=== PATIENT | male | born 1950 | race Hispanic/Latino ===

== ENCOUNTER 2017-01-21 08:15 | Outpatient (CLI) | payer OTHER ==
--- NOTE | 2017-01-21 09:51 | XRay Report ---
BILATERAL FOOT RADIOGRAPHS INDICATION: Osteoarthritis. COMPARISON: None similar at this institution. FINDINGS: AP, lateral and oblique radiographs of both feet demonstrate intact articulation. Bilateral ankle and mid foot degenerative spurring. Moderately advanced osteoarthritic changes noted at the tarsometatarsal joints, at least first through fourth on the left while at least the first on the right with narrowing, sclerosis, spurring and few subchondral cysts. Small bilateral plantar calcaneal spurs also noted. Approximately 8 mm prominent posterior talar process on the right as well. Bilateral ankle/hindfoot soft tissue swelling suspected, lateral more than medial. Mild left foot dorsal soft tissue swelling may also be noted. CONCLUSION: Bilateral feet osteoarthritic changes, greatest about the tarsometatarsal joints with other findings, as detailed above. Please correlate. Thank you for the opportunity to participate in this patient's care.
--- NOTE | 2017-01-21 09:52 | XRay Report ---
BILATERAL ANKLE RADIOGRAPHS INDICATION: Osteoarthritis. COMPARISON: None similar. FINDINGS: AP, lateral oblique and bilateral ankle radiographs demonstrate intact ankle mortise and preserved talar dome contours. Osteoarthritic changes, including malleolar degenerative spurring noted, right more than left. Small plantar calcaneal spurs and dorsal midfoot spurring also seen. Diffuse bilateral ankle soft tissue swelling also seen, lateral more than medial. CONCLUSION: Bilateral ankle bony degenerative changes and soft tissue swelling noted without acute fracture or dislocation, as described. Please correlate. Thank you for the opportunity to participate in this patient's care.
== END 2017-01-21 08:16 | disposition home or self-care (01) ==
LOC: XRAY 08:15
DX: M19.072 Primary osteoarthritis, left ankle and foot (principal); M19.071 Primary osteoarthritis, right ankle and foot; M72.2 Plantar fascial fibromatosis; M77.32 Calcaneal spur, left foot; M77.31 Calcaneal spur, right foot